=== PATIENT | female | born 1990 | race Caucasian/White ===

== ENCOUNTER 2017-05-16 08:36 | Emergency (ER) | payer MEDICAID ==
[2017-05-16 08:44] VITALS: RESP 18
--- NOTE | 2017-05-16 09:05 | CPEKG ---
Heart Rate: 84 RR Interval: 714 P-R Interval: 152 QRSD Interval: 92 QT Interval: 364 QTC Interval: 431 P Kotlik: 54 QRS Kotlik: -16 T Wave Kotlik: 49 EKG Severity - OTHERWISE NORMAL ECG - EKG Impression: SINUS RHYTHM EKG Impression: BORDERLINE LEFT AXIS DEVIATION Electronically Signed By: Adelita Rowe 16-May-2017 15:08:53
[2017-05-16] MEDS ORDERED: NS 1,000 ML IV ONE ×2 (09:20→10:17)
[2017-05-16 09:32] LABS: PLATELET COUNT 126 10^3/uL (150-400)
--- NOTE | 2017-05-16 09:32 | EDPHY ---
General Narrative: CHIEF COMPLAINT: Flu a, possible loss of consciousness HISTORY OF PRESENT ILLNESS: Patient presents with complaints of possibly losing consciousness this morning. She says that she stood up after waking walked to her bathroom. She became very lightheaded, says "I lost my sight and hearing for a second," and sat down. She began to feel better. This lasted momentarily. No chest pain during any of this. No headache. No neck pain or stiffness. She does have multiple flu-like symptoms that started on Saturday night. Yesterday morning she fell worsen presented to her primary care physician. She reports a positive influenza a test. She was started on Tamiflu. No other medications prescribed. No VTE risk factors. No other associated complaints or modifying factors. REVIEW OF SYSTEMS: Ten systems reviewed and are negative unless otherwise noted in the HPI PCP: [facility] SPECIALISTS: None PAST MEDICAL HISTORY: Anxiety PAST SURGICAL HISTORY: No recent surgical history SOCIAL HISTORY: Nonsmoker. Occasional alcohol. No drug use. Works as a bilingual teacher assistant FAMILY HISTORY: Noncontributory EXAMINATION General Appearance: Alert, no distress Head: normocephalic, atraumatic Eyes: Pupils equal and round, no conjunctival pallor or injection ENT, Mouth: Mucous membranes moist. Airway patent. Neck: Normal inspection, supple, non-tender Respiratory: Lungs are clear to auscultation Cardiovascular: Regular rate and rhythm. No murmur. Symmetric radial pulses 2+ . Gastrointestinal: Abdomen is soft and nontender Back: non-tender, no bony abnormalities Neurological: GCS 15. Cranial nerves 2-12 grossly intact. A&O, nonfocal, normal gait. Strength is symmetric. Skin: Warm and dry, no rash. No petechiae or purpura Extremities: Nontender, no pedal edema Psychiatric: Mood and affect normal DIFFERENTIAL DIAGNOSES: Including but not limited to influenza a, dehydration, vasovagal, orthostasis, syncope, near-syncope MDM: 9:25 a.m. Syncope versus near-syncope with normal examination, normal vital signs and well -appearing adult. She has no chest pain. No signs or symptoms of DVT or PE. No VTE risk factors. She was diagnosed with flu a yesterday and as felt very dehydrated. She is resting comfortably in no acute distress. I have ordered laboratory studies and IV fluid resuscitation. 10:20 a.m. Patient re-evaluated. Her vital signs remained normal. Labs are within normal limits. test is negative. She is feeling better with IV fluid resuscitation. I will provide additional L of fluid. I do feel she will be stable for discharge home at that time. Provide prescription for nausea medicine and medication for body aches. Provide a work note. She is to contact her primary care physician for outpatient follow-up. She is to return here immediately for syncope or any chest pain of any kind. She is comfortable this plan. SUPERVISION: Patient was independently examined, but I discussed the case with my primary supervising physician Dr. Rowe. - History Smoking Status: Never smoked - Objective Vital Signs: Initial Vital Signs Temperature (C) 98.2 F 05/16/17 08:37 Heart Rate 98 05/16/17 08:37 Respiratory Rate 18 05/16/17 08:37 Blood Pressure 106/73 05/16/17 08:37 O2 Sat (%) 94 05/16/17 08:37 O2 Delivery Mode Room Air Allergies/Adverse Reactions: adhesive tape Allergy (Verified 05/16/17 08:42) Home Medications: Medication Instructions Recorded Acetaminophen/Codeine 300/30Mg 1 each PO Q6 PRN #9 tab 05/16/17 [Tylenol #3 (*)] Promethazine HCl [Phenergan 25mg 25 mg PO Q8 PRN #12 tab 05/16/17 (*)] Tamiflu 05/16/17 Zoloft 100mg (*) 05/16/17 Laboratory Results: Laboratory Results 05/16/17 09:18 05/16/17 09:18 05/16/17 05/16/17 05/16/17 09:18 09:18 09:18 WBC 3.03 10^3/uL L 10^3/uL (3.80-9.50) RBC 4.59 10^6/uL 10^6/uL (4.18-5.33) Hgb 14.5 g/dL g/dL (12.6-16.3) Hct 42.2 % % (38.0-47.0) MCV 91.9 fL fL (81.5-99.8) MCH 31.6 pg pg (27.9-34.1) MCHC 34.4 g/dL g/dL (32.4-36.7) RDW 12.6 % % (11.5-15.2) Plt Count 126 10^3/uL L 10^3/uL (150-400) MPV 9.3 fL fL (8.7-11.7) Neut % (Auto) 67.4 % % (39.3-74.2) Lymph % (Auto) 19.1 % % (15.0-45.0) Will % (Auto) 12.2 % % (4.5-13.0) Eos % (Auto) 0.7 % % (0.6-7.6) Baso % (Auto) 0.3 % % (0.3-1.7) Nucleat RBC Rel Count 0.0 % % (0.0-0.2) Absolute Neuts (auto) 2.04 10^3/uL 10^3/uL (1.70-6.50) Absolute Lymphs (auto) 0.58 10^3/uL L 10^3/uL (1.00-3.00) Absolute Monos (auto) 0.37 10^3/uL 10^3/uL (0.30-0.80) Absolute Eos (auto) 0.02 10^3/uL L 10^3/uL (0.03-0.40) Absolute Basos (auto) 0.01 10^3/uL L 10^3/uL (0.02-0.10) Absolute Nucleated RBC 0.00 10^3/uL 10^3/uL (0-0.01) Immature Gran % 0.3 % % (0.0-1.1) Immature Gran # 0.01 10^3/uL 10^3/uL (0.00-0.10) Sodium 138 mEq/L mEq/L (135-145) Potassium 3.6 mEq/L mEq/L (3.5-5.2) Chloride 104 mEq/L mEq/L (97-110) Carbon Dioxide 24 mEq/l mEq/l (22-31) Anion Gap 10 mEq/L mEq/L (8-16) BUN 7 mg/dL mg/dL (7-23) Creatinine 0.7 mg/dL mg/dL (0.6-1.0) Estimated GFR > 60 Glucose 88 mg/dL mg/dL (70-100) Calcium 8.6 mg/dL mg/dL (8.5-10.4) Beta HCG, Qual NEGATIVE Medications Given: Discontinued Medications Sodium Chloride (Ns) 1,000 mls @ 0 mls/hr IV ONCE ONE PRN Reason: Wide Open Stop: 05/16/17 09:21 Last Admin: 05/16/17 09:21 Dose: 1,000 mls Departure - Departure Disposition: Home, Routine, Self-Care Clinical Impression: Influenza A, Near syncope Condition: Good Instructions: Influenza (ED), Near Syncope (ED) Additional Instructions: 1. Medication as prescribed as needed 2. Contact her primary care physician for further workup 3. ED precautions for worsening symptoms, syncope or any chest pain of any kind Referrals: NONE *PRIMARY CARE P,. [Primary Care Provider] - As per Instructions Stand Alone Forms: Work Excuse Prescriptions: Acetaminophen/Codeine 300/30Mg [Tylenol #3 (*)] 1 each PO Q6 PRN #9 tab PRN Reason: Pain, Mild Promethazine HCl [Phenergan 25mg (*)] 25 mg PO Q8 PRN #12 tab PRN Reason: Nausea/Vomiting, Use 1st
[2017-05-16 11:29] VITALS: BP 102/68; PULSE 81; TEMP 98.4; O2SAT 95
== END 2017-05-16 12:03 | disposition home or self-care (01) ==
DX: J10.1 Influenza due to other identified influenza virus with other respiratory manifestations (principal); R55 Syncope and collapse; E86.9 Volume depletion, unspecified

== ENCOUNTER 2017-05-18 16:53 | Emergency (ER) | payer MEDICAID ==
--- NOTE | 2017-05-18 17:20 | EDPHY ---
H & P Time Seen by Provider: 05/18/17 17:05 HPI/ROS: CHIEF COMPLAINT: Influenza, cough HISTORY OF PRESENT ILLNESS: 26-year-old female presents to the emergency department complaining of productive cough. Patient was diagnosed with influenza A 4 days ago. She was started on Tamiflu by her primary care provider. She presented to the emergency department the following day feeling very dehydrated and having near syncopal episode. She had laboratory studies and received IV fluids. She was feeling better. She states over last 2 or 3 days she has had productive cough and noted some streaks of blood. She does not feel short of breath. She has no pain in her chest. She has not had a fever in at least 3 days. She denies neck or back pain. Denies recent travel. Her is sick with influenza B and her son also has influenza A. Patient has no history of pneumonia. She has no history of asthma. REVIEW OF SYSTEMS: Constitutional: No fever, no chills. Eyes: No double or blurry vision. ENT: No sore throat. Respiratory: Cough, shortness of breath Cardiac: No chest pain. Gastrointestinal: No abdominal pain, vomiting or diarrhea. Genitourinary: No dysuria. Musculoskeletal: No neck or back pain. Skin: No rashes. Neurological: No headache. Past Medical/Surgical History: Influenza A on Tamiflu Social History: Smoking Status: Never smoked Physical Exam: General Appearance: Alert, no distress. 36.6 temperature, 130/79, 98% on room air Eyes: Pupils equal and round. Extraocular motions are all intact. ENT: Mouth: Mucous membranes moist. Respiratory: No wheezing, rhonchi, or rales, lungs are clear to auscultation. No respiratory distress. No coughing on exam. Cardiovascular: Regular rate and rhythm. Gastrointestinal: Abdomen is soft and nontender, no masses, no rebound or guarding, bowel sounds normal. Neurological: Alert and oriented x 3, cranial nerves II through XII grossly intact Skin: Warm and dry, no rashes. Musculoskeletal: Nontender to palpate along the cervical, thoracic or lumbar spine. Neck is supple. Extremities: Full range of motion and no peripheral edema. Psychiatric: Patient is oriented X 3, there is no agitation. Constitutional: Initial Vital Signs Temperature (C) 36.6 C 05/18/17 16:56 Heart Rate 73 05/18/17 16:56 Respiratory Rate 18 05/18/17 16:56 Blood Pressure 130/79 H 05/18/17 16:56 O2 Sat (%) 98 05/18/17 16:56 O2 Delivery Mode Room Air Allergies/Adverse Reactions: adhesive tape Allergy (Verified 05/18/17 16:55) Home Medications: Medication Instructions Recorded Acetaminophen/Codeine 300/30Mg 1 each PO Q6 PRN #9 tab 05/16/17 [Tylenol #3 (*)] Promethazine HCl [Phenergan 25mg 25 mg PO Q8 PRN #12 tab 05/16/17 (*)] Tamiflu 05/16/17 Zoloft 100mg (*) 05/16/17 Azithromycin [Zithromax tab 250 mg] 250 mg PO DAILY #4 tab 05/18/17 Medical Decision Making - Diagnostics Imaging Results: Imaging Impressions Chest X-Ray 05/18/17 17:15 Impression: Acute pneumonia right upper lobe. Imaging: I viewed and interpreted images myself ED Course/Re-evaluation: 26-year-old female presents to the emergency department with blood tinged sputum with cough over last few days. She has a history of influenza A. The patient is in no respiratory distress. She is afebrile. She is 97-98% on room air. Chest x-ray is pending. Chest x-ray reveals right upper middle lobe pneumonia. Laboratory studies are pending. The patient will be treated with Zithromax. Laboratory studies were unremarkable. Patient received 1 L of IV normal saline. She received 500 mg of Zithromax p. o.. She will continue Zithromax for the next 5 days. Patient was instructed to return to the emergency department if she developed chest pain, difficulty breathing, or if she felt worse in any way. Differential Diagnosis: Including but not limited to influenza, bronchitis, pneumonia, upper respiratory infection, tuberculosis - Data Points Laboratory Results: Laboratory Results 05/18/17 18:19 05/18/17 18:19 05/18/17 05/18/17 05/18/17 18:19 18:19 18:19 WBC 9.95 10^3/uL H 10^3/uL (3.80-9.50) RBC 4.26 10^6/uL 10^6/uL (4.18-5.33) Hgb 13.5 g/dL g/dL (12.6-16.3) Hct 39.0 % % (38.0-47.0) MCV 91.5 fL fL (81.5-99.8) MCH 31.7 pg pg (27.9-34.1) MCHC 34.6 g/dL g/dL (32.4-36.7) RDW 12.6 % % (11.5-15.2) Plt Count 134 10^3/uL L 10^3/uL (150-400) MPV 9.0 fL fL (8.7-11.7) Neut % (Auto) 79.1 % H % (39.3-74.2) Lymph % (Auto) 14.6 % L % (15.0-45.0) [place] % (Auto) 4.3 % L % (4.5-13.0) Eos % (Auto) 1.1 % % (0.6-7.6) Baso % (Auto) 0.2 % L % (0.3-1.7) Nucleat RBC Rel Count 0.0 % % (0.0-0.2) Absolute Neuts (auto) 7.87 10^3/uL H 10^3/uL (1.70-6.50) Absolute Lymphs (auto) 1.45 10^3/uL 10^3/uL (1.00-3.00) Absolute Monos (auto) 0.43 10^3/uL 10^3/uL (0.30-0.80) Absolute Eos (auto) 0.11 10^3/uL 10^3/uL (0.03-0.40) Absolute Basos (auto) 0.02 10^3/uL 10^3/uL (0.02-0.10) Absolute Nucleated RBC 0.00 10^3/uL 10^3/uL (0-0.01) Immature Gran % 0.7 % % (0.0-1.1) Immature Gran # 0.07 10^3/uL 10^3/uL (0.00-0.10) Sodium 141 mEq/L mEq/L (135-145) Potassium 3.3 mEq/L L mEq/L (3.5-5.2) Chloride 105 mEq/L mEq/L (97-110) Carbon Dioxide 25 mEq/l mEq/l (22-31) Anion Gap 11 mEq/L mEq/L (8-16) BUN 11 mg/dL mg/dL (7-23) Creatinine 0.7 mg/dL mg/dL (0.6-1.0) Estimated GFR > 60 Glucose 86 mg/dL mg/dL (70-100) Calcium 8.7 mg/dL mg/dL (8.5-10.4) Beta HCG, Qual NEGATIVE Medications Given: Discontinued Medications Azithromycin (Zithromax) 500 mg PO EDNOW ONE PRN Reason: Protocol Stop: 05/18/17 18:48 Last Admin: 05/18/17 18:51 Dose: 500 mg Sodium Chloride (Ns) 1,000 mls @ 0 mls/hr IV ONCE ONE PRN Reason: Wide Open Stop: 05/18/17 17:49 Last Admin: 05/18/17 18:25 Dose: 1,000 mls Azithromycin 500 mg/ Dextrose 255 mls @ 255 mls/hr IV EDNOW ONE PRN Reason: Protocol Stop: 05/18/17 19:00 Last Admin: 05/18/17 18:48 Dose: Not Given Departure - Departure Disposition: Home, Routine, Self-Care Clinical Impression: Influenza A Pneumonia Qualifiers: Pneumonia type: due to unspecified organism Laterality: right Lung location: upper lobe of lung Qualified Code(s): J18.1 - Lobar pneumonia, unspecified organism Condition: Good Instructions: Pneumonia (ED) Additional Instructions: Zithromax as directed for 5 days. Adult Pain & Fever Control: We recommend Acetaminophen (Tylenol) and Ibuprofen (Motrin,Advil) for pain and fever control. When fever is high or pain severe, both drugs can be used at the same time, but at different intervals. Please note the time differences. Your dose is: Acetaminophen [1000]mg every 4 to 6 hours Ibuprofen [600]mg every [8] hours with food Note: do not take Acetaminophen with Hydrocodone (Vicodin, Lortab) or Oycodone (Percocet). These medications also contain Acetaminophen. No more than 3000mg of Acetaminophen should be taken in 24 hours (for an adult). Follow up with primary care provider next week to recheck. Return to the emergency department sooner if you feel short of breath, chest pain, or if you feel worse in any way. Referrals: Sukhjinder Moreno MD [Medical Doctor] - 2-3 days without fail (Primary care provider phototypesetting equipment monitor) Stand Alone Forms: Work Excuse Prescriptions: Azithromycin [Zithromax tab 250 mg] 250 mg PO DAILY #4 tab
[2017-05-18] MEDS ORDERED: NS 1,000 ML IV ONE (17:48)
[2017-05-18] MEDS ORDERED: AZITHROMYCIN IV 500 MG in D5W 250 ML IV ONE (18:01)
[2017-05-18 18:29] LABS: PLATELET COUNT 134 10^3/uL (150-400)
[2017-05-18] MEDS ORDERED: AZITHROMYCIN 250 MG TAB PO ONE (18:47)
[2017-05-18 19:07] VITALS: BP 114/73; PULSE 76; RESP 16; TEMP 98.2; O2SAT 100
== END 2017-05-18 19:10 | disposition home or self-care (01) ==
DX: J10.00 Influenza due to other identified influenza virus with unspecified type of pneumonia (principal)
CPT/HCPCS: J0456